=== PATIENT | male | born 1975 | race Caucasian/White ===

== ENCOUNTER 2022-07-12 07:34 | Day surgery (SDC) | payer OTHER, SELFPAY ==
[2022-07-12] VITALS (20 sets, daily range): BP systolic 121–139; BP diastolic 81–90; PULSE 61–76; RESP 14–16; TEMP 36.2–36.8; O2SAT 95–99; BMI 25.0
[2022-07-12] MEDS: OXYMETAZOLINE 0.05% NASAL SPRAY 2 SPRAY NOSTRIL-B (08:06)
[2022-07-12] MEDS: LACTATED RINGERS 1000 ML 1,000 ML 100 ML IV (08:15)
[2022-07-12] MEDS: SODIUM CHLORIDE 0.9 % (FLUSH) 10 ML SYRINGE IVF (08:15)
[2022-07-12] MEDS: COCAINE HCL 4 % 4 ML SOLUTION NOSTRIL-B (09:48)
[2022-07-12] MEDS: BUPIVACAINE 0.5%/EPINEPHRINE 0.9 MG (30.9 ML) INJECTION (09:54)
--- NOTE | 2022-07-12 10:00 | SUR.OPER ---
PATIENT QUESTIONS ANSWERED SATISFACTORILY PREOPERATIVELY. PATIENT BROUGHT TO OR #2 PER CART. Patient positioned supine on OR #2 bed. ?Perioperative team tucked arms bilaterally at patient side with drawsheet. ?Final approval of positioning by surgeon.
[2022-07-12] MEDS: MUPIROCIN 1 GM PACKET 1 APPLIC TOPICAL (10:07)
--- NOTE | 2022-07-12 10:44 | W.ANESCHARGE ---
Anesthesia Charges Start Date/Time Anesthesia Start Date: 07/12/22 Anesthesia Start Time: 09:35 Stop Date/Time Anesthesia Stop Date: 07/12/22 Anesthesia Stop Time: 10:32 Summary Emergency: No
--- NOTE | 2022-07-12 11:22 | W.ANESCHARGE ---
Anesthesia Charges Start Date/Time Anesthesia Start Date: 07/12/22 Anesthesia Start Time: 09:35 Stop Date/Time Anesthesia Stop Date: 07/12/22 Anesthesia Stop Time: 10:32 Summary Emergency: No
--- NOTE | 2022-07-12 11:28 | W.PM.ENTPROC ---
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 McIvor mouth gag was inserted the tongue retracted forward. The lower half of the uvula was amputated with a needlepoint cautery. There was no bleeding. After regarding and gloving attention was turned to the nose. A right hemitransfixion incision was made left anterior and posterior tunnels were created. A vertical incision was made through the cartilage and a right posterior tunnel created. The posterior deflected portions of nasal septal bone and cartilage were resected a large piece was trimmed and returned to intraseptal space. The hemitransfixion was closed with 2 4-0 chromic sutures. A stab incision was made in the anterior head of the right inferior turbinate and a tunnel created with a Antoine dissector. The joshua bone was outfractured and a conservative anterior submucous resection performed with a Frederick forceps. The Coblation Wand was used for hemostasis and also to cauterize intramurally along the inferior 10% of the turbinate. This was repeated on the left side in identical fashion. Silastic stents were secured with 3-0 nylon. Merocel pack was trimmed lengthwise coated in Bactroban and placed beneath the middle turbinates on each side. The patient tolerated procedure well was taken to recovery in satisfactory condition. Blood loss was less than 10 mL. There were no complications. Surgeon: Emerson Ríos MD
== END 2022-07-12 12:11 | disposition home or self-care (01) ==
PROVIDERS: PCP Family Medicine; Visit Provider Otolaryngology
PROC: (CPT 30520; principal; 2022-07-12 09:00)
DX: J34.2 Deviated nasal septum (principal); J34.3 Hypertrophy of nasal turbinates; K13.79 Other lesions of oral mucosa
CPT/HCPCS: 30520; 30140; 42140; 160; A9270; J0330; J1100; J2405; J2704; J3010; J7120